=== PATIENT | male | born 1990 | race Caucasian/White ===

== ENCOUNTER 2020-03-22 15:07 | Emergency (ER) | payer OTHER ==
[~2020-03-22] VITALS: Ht 170.2 cm; Wt 69.9 kg
[2020-03-22 15:35] VITALS: BP 116/83; Ht 170.2 cm; Wt 69.9 kg
== END 2020-03-22 18:30 | disposition home or self-care (01) ==
LOC: ED 15:07
DX: R07.89 Other chest pain (principal); X58.XXXA Exposure to other specified factors, initial encounter; Y93.55 Activity, bike riding; Y92.413 State road as the place of occurrence of the external cause; Y99.8 Other external cause status